=== PATIENT | male | born 1960 | race Caucasian/White ===

== ENCOUNTER → 2024-08-17 15:06 | Outpatient (REF) | payer BC, SELFPAY | LOC: RCS 15:06 | PROVIDERS: ATTENDING PHYSICIAN Internal Medicine Cardiovascular Disease; FAMILY PHYSICIAN Family Medicine | DX: I34.0 Nonrheumatic mitral (valve) insufficiency (principal); I25.118 Atherosclerotic heart disease of native coronary artery with other forms of angina pectoris | CPT/HCPCS: 93306 ==

== ENCOUNTER → 2025-05-30 15:16 | Outpatient (REF) | payer BC, SELFPAY | LOC: HWRAD 15:16 | PROVIDERS: ATTENDING PHYSICIAN Family Medicine | DX: Z87.891 Personal history of nicotine dependence (principal) | CPT/HCPCS: 71271 ==